=== PATIENT | female | born 1970 | race Caucasian/White ===

== ENCOUNTER 2017-09-19 00:06 | Emergency (ER) | payer MEDICAID ==
[~2017-09-19] VITALS: Ht 154.9 cm; Wt 84.6 kg
[2017-09-19] MEDS ORDERED: ALBUTEROL/IPRATROPIUM 2.5MG/0.5MG, 3 ML ONE (00:28)
[2017-09-19] MEDS ORDERED: ALBUTEROL SULFATE 2.5 MG/3 ML NPPB ONE (00:30)
[2017-09-19 01:43] VITALS: BP 106/65
== END 2017-09-19 01:46 | disposition home or self-care (01) ==
LOC: ED 01:30
DX: J44.1 Chronic obstructive pulmonary disease with (acute) exacerbation (principal); J02.9 Acute pharyngitis, unspecified
CPT/HCPCS: 71045; 94640; 99283; J7512; J7613

== ENCOUNTER 2017-11-29 09:43 | Emergency (ER) | payer MEDICAID ==
[~2017-11-29] VITALS: Ht 154.9 cm; Wt 81.1 kg
[2017-11-29] MEDS ORDERED: PROMETHAZINE/COD. 10MG/6.25MG/5 ML ORAL SOL PO ONE (10:30)
[2017-11-29 12:45] VITALS: BP 140/90
== END 2017-11-29 12:47 | disposition home or self-care (01) ==
LOC: ED 10:30
DX: J20.8 Acute bronchitis due to other specified organisms (principal); J44.0 Chronic obstructive pulmonary disease with (acute) lower respiratory infection; B97.89 Other viral agents as the cause of diseases classified elsewhere; E66.9 Obesity, unspecified
CPT/HCPCS: 71046; 99284

== ENCOUNTER 2018-06-20 21:30 | Emergency (ER) | payer MEDICAID, OTHER ==
[~2018-06-20] VITALS: Ht 154.9 cm; Wt 80.9 kg
[2018-06-20 21:32] VITALS: BP 145/84
[2018-06-20] MEDS ORDERED: DIAZEPAM 5 MG TABLET ONE (22:14)
[2018-06-20] MEDS ORDERED: KETOROLAC 30 MG/1 ML ONE (22:14)
[2018-06-20] MEDS ORDERED: DIAZEPAM 5 MG TABLET PO ONE (22:30)
[2018-06-20] MEDS ORDERED: KETOROLAC 30 MG/1 ML IM ONE (22:30)
== END 2018-06-20 22:56 | disposition home or self-care (01) ==
LOC: ED 22:40
DX: S39.012A Strain of muscle, fascia and tendon of lower back, initial encounter (principal); J44.9 Chronic obstructive pulmonary disease, unspecified; X58.XXXA Exposure to other specified factors, initial encounter; Y93.89 Activity, other specified; Y99.8 Other external cause status; Y92.89 Other specified places as the place of occurrence of the external cause
CPT/HCPCS: 96372; 99283; J1885

== ENCOUNTER 2018-07-26 19:23 | Emergency (ER) | payer SELFPAY ==
[~2018-07-26] VITALS: Ht 154.9 cm; Wt 83.4 kg
[2018-07-26] MEDS ORDERED: KETOROLAC 30 MG/1 ML ONE (20:11)
[2018-07-26] MEDS ORDERED: DIAZEPAM 5 MG TABLET ONE (20:11)
[2018-07-26] MEDS ORDERED: KETOROLAC 30 MG/1 ML IM ONE (20:30)
[2018-07-26] MEDS ORDERED: DIAZEPAM 5 MG TABLET PO ONE (20:30)
[2018-07-26 21:16] VITALS: BP 124/86
== END 2018-07-26 21:18 | disposition home or self-care (01) ==
LOC: ED 19:32
DX: S39.012A Strain of muscle, fascia and tendon of lower back, initial encounter (principal); M62.830 Muscle spasm of back; J44.9 Chronic obstructive pulmonary disease, unspecified; M54.16 Radiculopathy, lumbar region; E66.9 Obesity, unspecified; Z68.34 Body mass index [BMI] 34.0-34.9, adult; Z98.890 Other specified postprocedural states; Z87.19 Personal history of other diseases of the digestive system; X58.XXXA Exposure to other specified factors, initial encounter; Y93.89 Activity, other specified; Y92.89 Other specified places as the place of occurrence of the external cause; Y99.8 Other external cause status
CPT/HCPCS: 72110; 96372; 99284; J1885

== ENCOUNTER 2020-01-30 21:12 | Emergency (ER) | payer MEDICAID ==
[~2020-01-30] VITALS: Ht 154.9 cm; Wt 76.4 kg
[2020-01-30 21:26] VITALS: BP 161/98
[2020-01-30] MEDS ORDERED: CEFTRIAXONE PMX 1GM/50ML 50 ML ONE (21:40)
--- NOTE | 2020-01-30 21:57 | NUR ---
FIRST CONTACT WITH PT. PT C/O SWELLING, ABSCESS TO RIGHT SIDE OF FACE X 1 DAY. PT'S AOX4. RESPS EVEN AND UNLABORED.
[2020-01-30] MEDS ORDERED: AMOXICILLIN 500 MG CAPSULE ONE (22:54)
[2020-01-30] MEDS ORDERED: IBUPROFEN 200 MG TABLET ONE (22:54)
--- NOTE | 2020-01-30 22:59 | NUR ---
PT MEDICATED PER EMAR. PT TOLERATED WELL.
[2020-01-30] MEDS ORDERED: AMOXICILLIN 500 MG CAPSULE PO ONE (23:00)
[2020-01-30] MEDS ORDERED: IBUPROFEN 200 MG TABLET PO ONE (23:00)
--- NOTE | 2020-01-30 23:15 | NUR ---
Patient given discharge instructions and they have confirmed that they understand the instructions. Patient ambulatory with steady gait.
== END 2020-01-30 23:16 | disposition home or self-care (01) ==
LOC: ED 23:07
DX: K02.9 Dental caries, unspecified (principal); K04.7 Periapical abscess without sinus; J44.9 Chronic obstructive pulmonary disease, unspecified; E66.01 Morbid (severe) obesity due to excess calories; Z68.31 Body mass index [BMI] 31.0-31.9, adult
CPT/HCPCS: 99283

== ENCOUNTER 2020-02-21 17:50 | Emergency (ER) | payer MEDICAID ==
[~2020-02-21] VITALS: Ht 154.9 cm; Wt 75.9 kg
[2020-02-21 17:53] VITALS: BP 119/73
--- NOTE | 2020-02-21 17:58 | NUR ---
REPORT TO PRIMARY RN ANKITA WHO ASSUMED CARE OF PT.
--- NOTE | 2020-02-21 18:55 | NUR ---
PT AT XRAY.
--- NOTE | 2020-02-21 19:15 | NUR ---
ALL RESULTS ARE BACK AT THIS TIME. CHART UP FOR RECHECK.
[2020-02-21] MEDS ORDERED: HYDROcodone/APAP 5/325 TABLET PO ONE (19:30)
[2020-02-21] MEDS ORDERED: HYDROcodone/APAP 5/325 TABLET ONE (19:51)
--- NOTE | 2020-02-21 19:54 | NUR ---
MEDS ADMIN PER NOV. PT CONTACTING FRIEND FOR RIDE HOME.
== END 2020-02-21 20:33 | disposition home or self-care (01) ==
LOC: ED 19:42
DX: M16.12 Unilateral primary osteoarthritis, left hip (principal); J44.9 Chronic obstructive pulmonary disease, unspecified; Z87.891 Personal history of nicotine dependence
CPT/HCPCS: 99283